=== PATIENT | female | born 1995 | race Caucasian/White ===

== ENCOUNTER 2022-06-28 10:28 | Inpatient (IN) ==
[2022-06-28] MEDS ORDERED: LIDOCAINE 1% LOCAL 20 ML VIAL INFIL PRN (11:37)
[2022-06-28] MEDS ORDERED: OXYTOCIN 30 UNITS/500 ML BAG IV PRN ×3 (11:37→20:36)
--- NOTE | 2022-06-28 11:45 | History & Physical Report ---
Date of Service June 28, 2022 Assessment & Plan (1) with 39 completed weeks gestation: (2) Active labor at term: Plan admit, iv, labs. discussed ctx irregular, so likely will need to try to arom and if needed pitocin to improve labor pattern. she prefers this. does not want to go home. wants epidural. when comfortable plan arom. fhts categ 1. Admission and Anticipated Discharge Date Admission Date: June 28, 2022 History of Present Illness Chief Complaint: contractions, 4cm in office Primary Care Provider: NO PCP 26yo at 39 6/7 wks egradha presents to L&D after presenting to office with contractions and 4-5cm dilated per physician. Patient notes strong ctx. She was apparently here yesterday with painful ctx but deemed not in labor, was 1cm. No rom, no vb. +FM. PNC uncomplicated PNL rh pos, ri, gbs net OBH: g1 GYNH: neg paps, no stds Allergies Allergy/AdvReac Type Severity Reaction Status Date / Time No Known Allergies Allergy Verified 06/28/22 09:33 Home Medications Medication Instructions Recorded Confirmed Type prenat.vits,huyen,lsk-aafn-gustn PO DAILY 11/16/21 06/28/22 History Patient History Medical History (Updated 06/28/22 @ 11:43 by Nicole Garg MD, FACOG) Varicella vaccination Surgical History No history of previous surgery Family History (Updated 11/10/21 @ 14:11 by Rubi Lewis) Denies family history of Ovarian cancer Breast cancer Colorectal cancer Social History (Updated 11/10/21 @ 14:21 by Rubi Lewis) Smoking Status: Never smoker Second Hand Exposure: No; Hx Alcohol Use: No Hx Substance Use: No Preferred Language: Jamaican Communication Ability: Effective Health Inspector Food Required: No Beliefs That Will Affect Care: None marital status: marital status details: Dirk Martell (26) [phone] Current Living Situation: Spouse Current Living Situation Comment: Lives with and mother current occupational status: employed current occupation: [employer] Other Information That Helps Us Care for You: No Feels Safe at Home: Yes Safety Concerns: Feels Safe At This Time Assistive Devices: None Review of Systems as per Subjective / HPI Physical Exam Constitutional: WD/WN, vitals as above Respiratory: normal respiratory effort, lungs clear to auscultation Cardiovascular: Rate/Rhythm: regular rate and regular rhythm Gastrointestinal (Abdomen): soft gravid nt efw 7-8# Musculoskeletal: no edema nontender calves Neurologic: grossly normal Psychiatric: A+Ox3, euthymic affect Genitourinary: Manual OB Exam: + cervical dilation 4 cm, + cervical effacement (75%) and + station (mid soft) -2 OB Exam Monitor Tracing: + external FHT monitor used, + external uterine monitor used (q2-7), + category I and + normal FHT variability Coding Level of Care Code None Diagnoses with 39 completed weeks gestation Z3A.39 Active labor at term
[2022-06-28] MEDS: LACTATED RINGER'S 1,000 ML IV PRN ×3 (11:59→20:12)
[2022-06-28 12:42] LABS: Hematocrit (blood only) 34.4 % (34.1-44.9); Hemoglobin 11.6 g/dl (12.0-16.0); Mean Corpuscular Hemoglobin 27.7 pg (25.0-34.0); Mean Corpuscular Hgb Conc 33.7 g/dL (32.0-36.0); Mean Corpuscular Volume 82.1 fL (80.0-100.0); Mean Platelet Volume 10.3 fL (9.4-12.3); Platelet Count 338 K/uL (130-400); RDW Coefficient of Variation 13.3 % (11.5-14.5); Red Blood Count 4.19 M/uL (3.93-5.22); White Blood Count 12.37 K/ul (4.8-10.8)
[2022-06-28] MEDS ORDERED: SODIUM CHLORIDE 0.9% INJ 10 ML VIAL ONE (13:24)
[2022-06-28] MEDS ORDERED: fentaNYL citrate 100 MCG/2 ML VIAL ONE (13:24)
[2022-06-28] MEDS ORDERED: BUPIVACAINE 0.25% 30 ML VIAL ONE (13:24)
[2022-06-28] MEDS ORDERED: ePHEDrine sulfate 50 MG/ML AMP ONE (13:24)
[2022-06-28] MEDS ORDERED: LIDOCAINE 2%/EPINEPHRINE 1:200,000 20 ML SDV ONE (13:24)
[2022-06-28] MEDS ORDERED: fentaNYL 2MCG/ML ROPIVACAINE 1.25MG/ML 100 ML BAG EPI ONE (13:25)
--- NOTE | 2022-06-28 13:37 | Anesthesiology Consultation ---
Date of Service June 28, 2022 Assessment & Plan (1) Encounter for pre-operative examination: Chart Review Chart Review: Acceptable Risk for Labor Epidural History Height/Weight Height: 5 ft 1 in Weight: 58.513 kg Allergies Allergy/AdvReac Type Severity Reaction Status Date / Time No Known Allergies Allergy Verified 06/28/22 09:33 Medications Home Medications Medication Instructions Recorded Confirmed Last Taken prenat.vits,huyen,ynj-mxrg-lobsg PO DAILY 11/16/21 06/28/22 Unknown Active Medications Generic Name Dose Route Start Last Admin Trade Name Freq PRN Reason Stop Dose Admin Lactated Ringer's 1,000 mls @ 125 mls/hr 06/28/22 11:37 06/28/22 11:59 Lr IV 06/30/22 11:36 125 mls/hr .Q8H PRN Administration L&D Protocol Protocol Past Medical History Medical History Varicella vaccination Past Family History Family History Denies family history of Ovarian cancer Breast cancer Colorectal cancer Past Surgical History Surgical History No history of previous surgery Social History Smoking Status: Never smoker Hx Alcohol Use: No Hx Substance Use: No substance use type: does not use Physical Exam Vital Signs Last Vital Signs Pulse 68 06/28/22 13:16 BP 113/69 06/28/22 13:16 Testing Laboratory Results 06/28/22 11:57
[2022-06-28] MEDS ORDERED: ePHEDrine sulfate 50 MG/ML AMP IV PRN (13:59)
[2022-06-28] MEDS ORDERED: fentaNYL 2MCG/ML ROPIVACAINE 1.25MG/ML 100 ML BAG EPI PRN (13:59)
[2022-06-28] MEDS ORDERED: NALOXONE HCL 1 MG in SODIUM CHLORIDE 0.9% 1000ML 1,000 ML IV PRN (13:59)
[2022-06-28] MEDS ORDERED: NALOXONE HCL 0.4 MG/1 ML VIAL/CARP IV PRN (13:59)
[2022-06-28] MEDS ORDERED: ONDANSETRON INJ 2 MG/ML 2 ML VIAL IV PRN (13:59)
--- NOTE | 2022-06-28 15:49 | Labor Progress Brief Note ---
Date of Service June 28, 2022 Subjective pt comfortable with epidural. Assessment & Plan (1) with 39 completed weeks gestation: Plan: will see how arom helps labor pattern, if no regular pattern. start pitocin, pt aware and agrees. fhts categ 1. Admission and Anticipated Discharge Date Admission Date: June 28, 2022 Physical Exam Genitourinary: Manual OB Exam: + cervical dilation 5 cm, + cervical effacement 90%, + station -2 and + amniotic fluid (AROM) clear OB Exam Monitor Tracing: + external FHT monitor used, + external uterine monitor used (Q2-7), + category I and + normal FHT variability Results & Data ([facility]) Vital Signs (Past 12 Hours) Vital Signs Temp Pulse Resp BP Pulse Ox 06/28/22 15:42 65 100 06/28/22 15:37 64 100 06/28/22 15:32 65 100 06/28/22 15:31 65 89/53 L 06/28/22 15:27 66 84 L 06/28/22 15:22 67 100 06/28/22 15:17 70 100 06/28/22 15:12 72 100 06/28/22 15:07 72 100 06/28/22 15:02 66 100 06/28/22 14:57 64 100 06/28/22 14:52 70 100 06/28/22 14:47 69 100 06/28/22 14:46 63 106/66 06/28/22 14:42 74 100 06/28/22 14:37 65 100 06/28/22 14:32 65 100 06/28/22 14:31 72 107/60 06/28/22 14:27 80 100 06/28/22 14:22 96 H 100 06/28/22 14:17 76 100 06/28/22 14:15 69 114/65 06/28/22 14:12 80 111/64 100 06/28/22 14:09 97 H 101/55 L 06/28/22 13:49 17 06/28/22 13:49 98.4 F 17 06/28/22 14:07 79 100 06/28/22 14:06 70 104/56 L 06/28/22 14:03 88 107/63 06/28/22 14:02 86 100 06/28/22 14:00 73 104/60 06/28/22 13:57 87 112/70 100 06/28/22 13:54 88 111/73 06/28/22 13:52 87 100 06/28/22 13:51 91 H 111/62 06/28/22 13:47 81 100 06/28/22 13:48 77 121/69 06/28/22 13:44 96 H 92 06/28/22 13:42 92 H 100 06/28/22 13:16 68 113/69 06/28/22 11:40 71 112/71 Coding Level of Care Code None Diagnoses with 39 completed weeks gestation Z3A.39
--- NOTE | 2022-06-28 17:33 | Labor Progress Brief Note ---
Date of Service June 28, 2022 Subjective ctsp due to decels. on my arrival pt in knee chest, ivf bolusing and pit off (was at 3). fhts improved to 120s with variability. Assessment & Plan (1) with 39 completed weeks gestation: (2) Active labor at term: Plan good cx change in labor. pit off but can restart after 30min if status reassuring if ctx once again space out. reviewed all with pt. fhts now reassuring. Admission and Anticipated Discharge Date Admission Date: June 28, 2022 Physical Exam Genitourinary: Manual OB Exam: + cervical dilation 9 cm, + cervical effacement 90% and + station 0 OB Exam Monitor Tracing: + external FHT monitor used (fhts now at 100-120 mod variability ), + external uterine monitor used (q2) and + normal FHT variability Results & Data ([facility]) Vital Signs (Past 12 Hours) Vital Signs Temp Pulse Resp BP Pulse Ox 06/28/22 17:27 80 100 06/28/22 17:22 78 100 06/28/22 17:17 80 100 06/28/22 17:14 89 91 06/28/22 17:12 91 H 100 06/28/22 17:10 73 108/70 06/28/22 17:07 73 99 06/28/22 17:02 77 106/56 L 99 06/28/22 16:57 72 99 06/28/22 16:52 69 99 06/28/22 16:47 66 99 06/28/22 16:46 77 100/59 L 06/28/22 16:42 70 99 06/28/22 16:37 71 100 06/28/22 16:32 73 100 06/28/22 16:27 69 100 06/28/22 16:22 61 99 06/28/22 16:17 64 100 06/28/22 16:12 65 98 06/28/22 16:07 63 99 06/28/22 16:02 67 100 06/28/22 15:57 63 100 06/28/22 15:52 62 99 06/28/22 15:47 100 06/28/22 15:47 69 06/28/22 15:47 63 93/51 L 06/28/22 15:42 65 100 06/28/22 15:37 64 100 06/28/22 15:32 65 100 06/28/22 15:31 65 89/53 L 06/28/22 15:27 66 84 L 06/28/22 15:22 67 100 06/28/22 15:17 70 100 06/28/22 15:12 72 100 06/28/22 15:07 72 100 06/28/22 15:02 66 100 06/28/22 14:57 64 100 06/28/22 14:52 70 100 06/28/22 14:47 69 100 06/28/22 14:46 63 106/66 06/28/22 14:42 74 100 06/28/22 14:37 65 100 06/28/22 14:32 65 100 06/28/22 14:31 72 107/60 06/28/22 14:27 80 100 06/28/22 14:22 96 H 100 06/28/22 14:17 76 100 06/28/22 14:15 69 114/65 06/28/22 14:12 80 111/64 100 06/28/22 14:09 97 H 101/55 L 06/28/22 13:49 17 06/28/22 13:49 98.4 F 17 06/28/22 14:07 79 100 06/28/22 14:06 70 104/56 L 06/28/22 14:03 88 107/63 06/28/22 14:02 86 100 06/28/22 14:00 73 104/60 06/28/22 13:57 87 112/70 100 06/28/22 13:54 88 111/73 06/28/22 13:52 87 100 06/28/22 13:51 91 H 111/62 06/28/22 13:47 81 100 06/28/22 13:48 77 121/69 06/28/22 13:44 96 H 92 06/28/22 13:42 92 H 100 06/28/22 13:16 68 113/69 06/28/22 11:40 71 112/71 Coding Level of Care Code None Diagnoses with 39 completed weeks gestation Z3A.39 Active labor at term
--- NOTE | 2022-06-28 20:33 | Delivery Summary ---
Vaginal Delivery Summary Date of Service June 28, 2022 Vaginal Delivery Summary The patient dilated to complete and pushed to deliver a viable male infant Apgars 8 and 9 via over intact perineum. Mouth and nose bulb suctioned at perineum. Shoulders and body delivered with ease. Infant was vigorous and crying at . Cord clamped at 30 seconds of life and to maternal abdomen where the cord was then doubly clamped and cut. Placenta delivered spontaneously and intact, three-vessel cord. Hemostasis achieved with dilute pitocin and uterine massage and drainage of the bladder for approximately 150 cc under sterile conditions. Cervix and sulci intact. Small right and left labial separations reapproximated with 4-0 vicryl. EBL 300 cc. Mother and baby stable in recovery. [facility] Vaginal Delivery Charge Delivery Type Details:
[2022-06-28] MEDS ORDERED: bisacodyL 10 MG SUPP PR PRN (20:36)
[2022-06-28] MEDS ORDERED: BENZOCAINE 20% AER SPR 82.5 GM CAN EXT PRN (20:36)
[2022-06-28] MEDS ORDERED: HYDROCORTISONE ACETATE 25 MG SUPP PR PRN (20:36)
[2022-06-28] MEDS ORDERED: ACETAMINOPHEN 325 MG TAB PO PRN (20:36)
[2022-06-28] MEDS ORDERED: DIPHTHERIA/TETANUS/PERTUSSIS 0.5mL SYR/VIAL (Age 7+yrs) IM ONE (20:36)
[2022-06-28] MEDS ORDERED: oxyCODONE/ACETAMINOPHEN 5mg/325mg TAB PO PRN (20:36)
[2022-06-28] MEDS ORDERED: OXYTOCIN 20 UNITS in LACTATED RINGER'S 1,000 ML IV SCH (20:45)
--- NOTE | 2022-06-28 21:18 | Anesthesia Procedure Note ---
Date of Service June 28, 2022 Anesthesia Post Epidural Note Vital Signs Vital Signs: Temp Pulse Resp BP Pulse Ox O2 Del Method 37.2 C 94 H 18 108/55 L 99 06/28/22 19:07 06/28/22 21:16 06/28/22 20:30 06/28/22 21:16 06/28/22 20:22 06/28/22 19:07 Notes Mental Status: alert / awake / arousable and participated in evaluation Nausea / Vomiting: adequately controlled Pain: adequately controlled Airway Patency, RR, SpO2: stable & adequate BP & HR: stable & adequate Hydration State: stable & adequate Neuraxial Anesthesia: was administered and sensory block is resolving Anesthetic Complications: no major complications apparent Epidural: Removed without complications and With tip intact
[2022-06-28] MEDS: DOCUSATE SODIUM 100 MG CAP PO SCH (21:26)
[2022-06-28] MEDS: IBUPROFEN 600 MG TAB PO PRN (21:46)
[2022-06-29] MEDS: IBUPROFEN 600 MG TAB PO PRN ×4 (06:41→23:24)
--- NOTE | 2022-06-29 06:44 | Obstetrical Progress Note ---
Date of Service June 29, 2022 Assessment & Plan (1) care following vaginal delivery: Plan stable, routine pp care. breast feeding, rh pos, ri. Day #:: 1 Subjective Ambulation: ambulating normally Voiding: no voiding problems Diet Tolerance:: regular diet Lochia:: Moderate Feeding Type:: breast feeding having uterine cramps and aware of motrin to help Physical Exam Constitutional WD/WN, vitals as above Respiratory normal respiratory effort, lungs clear to auscultation Cardiovascular Rate/Rhythm: regular rate and regular rhythm Gastrointestinal (Abdomen) Inspection/Auscultation: abdomen normal to inspection Percussion/Palpation: abdomen soft Fundus firm 2cm down Musculoskeletal nt calves no edema Neurologic grossly normal Psychiatric A+Ox3, euthymic affect Results & Data ([facility]) Vital Signs (Past 12 Hours) Vital Signs Temp Pulse Pulse Resp BP BP Pulse Ox 06/29/22 04:00 97.3 F L 61 16 95/60 L 06/28/22 23:20 98.2 F 81 16 100/62 06/28/22 22:30 98.4 F 18 06/28/22 21:15 18 06/28/22 21:00 85 18 115/64 06/28/22 22:00 18 06/28/22 21:30 18 06/28/22 20:45 18 06/28/22 20:30 18 06/28/22 19:07 99.0 F 18 06/28/22 19:07 06/28/22 22:31 101 H 95/61 L 06/28/22 22:16 100 H 101/59 L 06/28/22 22:03 100 H 105/61 06/28/22 21:30 85 115/64 06/28/22 21:16 94 H 108/55 L 06/28/22 21:01 96 H 122/77 06/28/22 20:46 98 H 116/73 06/28/22 20:31 97 H 118/66 06/28/22 20:22 119 H 99 06/28/22 20:17 118 H 87 L 06/28/22 20:12 100 H 83 L 06/28/22 20:07 89 100 06/28/22 20:02 77 100 06/28/22 20:00 18 06/28/22 20:00 18 06/28/22 20:01 76 119/80 06/28/22 19:57 78 100 06/28/22 19:52 78 99 06/28/22 19:30 18 06/28/22 19:30 18 06/28/22 19:47 75 100 06/28/22 19:46 74 123/81 06/28/22 19:42 72 96/53 L 98 06/28/22 19:37 75 98 06/28/22 19:32 76 100 06/28/22 19:27 77 97 06/28/22 19:22 116 H 89 L 06/28/22 19:17 108 H 100 06/28/22 19:16 88 105/74 06/28/22 19:12 74 100 06/28/22 19:07 78 100 06/28/22 19:02 94 H 100 06/28/22 19:01 99.0 F 73 18 110/73 06/28/22 18:57 88 100 06/28/22 18:52 77 100 06/28/22 18:47 73 100 06/28/22 18:46 98.8 F 92 H 18 89 L O2 Del Method 06/29/22 04:00 Room Air 06/28/22 23:20 Room Air 06/28/22 22:30 06/28/22 21:15 06/28/22 21:00 06/28/22 22:00 06/28/22 21:30 06/28/22 20:45 06/28/22 20:30 06/28/22 19:07 06/28/22 19:07 Room Air 06/28/22 22:31 06/28/22 22:16 06/28/22 22:03 06/28/22 21:30 06/28/22 21:16 06/28/22 21:01 06/28/22 20:46 06/28/22 20:31 06/28/22 20:22 06/28/22 20:17 06/28/22 20:12 06/28/22 20:07 06/28/22 20:02 06/28/22 20:00 06/28/22 20:00 06/28/22 20:01 06/28/22 19:57 06/28/22 19:52 06/28/22 19:30 06/28/22 19:30 06/28/22 19:47 06/28/22 19:46 06/28/22 19:42 06/28/22 19:37 06/28/22 19:32 06/28/22 19:27 06/28/22 19:22 06/28/22 19:17 06/28/22 19:16 06/28/22 19:12 06/28/22 19:07 06/28/22 19:02 06/28/22 19:01 06/28/22 18:57 06/28/22 18:52 06/28/22 18:47 06/28/22 18:46
[2022-06-29] MEDS: PRENATAL VITAMIN 1 TAB PO SCH (11:30)
[2022-06-29] MEDS: DOCUSATE SODIUM 100 MG CAP PO SCH ×2 (11:30→20:06)
[2022-06-29] MEDS ORDERED: bisacodyL 5 MG TABEC PO SCH (20:00)
--- NOTE | 2022-06-30 08:06 | Obstetrical Progress Note ---
Date of Service June 30, 2022 Assessment & Plan (1) care following vaginal delivery: satisfactory progress discharge to home follow up in 6 weeks. Subjective Ambulation: ambulating normally Voiding: no voiding problems Passing Gas:: Yes Diet Tolerance:: regular diet Lochia:: Small Feeding Type:: breast feeding Review of Systems All systems reviewed & are unremarkable except as noted in HPI & below Physical Exam Constitutional WD/WN, vitals as above Psychiatric A+Ox3, euthymic affect Genitourinary OB Exam Abdomen: + fundal height Fundus: + firm and + relation to umbilicus (2 below U) Results & Data ([facility]) Vital Signs (Past 12 Hours) Vital Signs Temp Pulse Resp BP Pulse Ox O2 Del Method 06/29/22 23:30 97.9 F 83 18 102/68 99 Room Air 06/29/22 20:25 98.2 F 76 16 107/71 99 Room Air
[2022-06-30] MEDS: IBUPROFEN 600 MG TAB PO PRN (09:02)
[2022-06-30] MEDS: DOCUSATE SODIUM 100 MG CAP PO SCH (09:03)
[2022-06-30] MEDS: PRENATAL VITAMIN 1 TAB PO SCH (09:03)
== END 2022-06-30 13:30 | disposition home or self-care (01) | DRG 807 ==
LOC: 4S1 10:28 → 4E2 22:45
DX: O70.0 First degree perineal laceration during delivery; Z37.0 Single live birth; Z3A.39 39 weeks gestation of pregnancy